=== PATIENT | male | born 1980 | race Caucasian/White ===

== ENCOUNTER 2023-10-07 07:51 | Emergency (ER) | payer OTHER ==
[~2023-10-07] VITALS: Ht 157.5 cm; Wt 64.2 kg
[2023-10-07 07:54] VITALS: BP 128/99; PULSE 80; RESP 18; TEMP 97.7; O2SAT 100
[2023-10-07 08:09] VITALS: O2SAT 100
[2023-10-07 08:14] VITALS: BP 125/83; TEMP 97.7
[2023-10-07 08:17] LABS: BASOPHILS % (AUTO) 0.1 % (0.0-2.0); EOSINOPHILS # (AUTO) 0.4 K/uL (0-0.4); EOSINOPHILS % (AUTO) 4.7 % (0.0-4.0); HEMATOCRIT 45.2 % (36-52); HEMOGLOBIN 15.7 g/dL (12.0-18.0); LYMPHOCYTES # (AUTO) 1.2 K/uL (2.0-11.5); LYMPHOCYTES % (AUTO) 14.2 % (20.5-51.1); MEAN CORPUSCULAR HEMOGLOBIN 31 pg (27-31); MEAN CORPUSCULAR HGB CONC 35 g/dL (33-37); MEAN CORPUSCULAR VOLUME 89.1 fL (80-94); MONOCYTES # (AUTO) 1.2 K/uL (0.8-1.0); MONOCYTES % (AUTO) 14.1 % (1.7-9.3); NEUTROPHILS # (AUTO) 5.8 K/uL (1.8-7.7); NEUTROPHILS % (AUTO) 66.9 % (42.2-75.2); PLATELET COUNT (AUTO) 240 K/uL (140-450); RED BLOOD CELL COUNT(AUTO) 5.08 MIL/uL (4.20-6.10); RED CELL DISTRIBUTION WIDTH 13.3 % (11.6-13.7); WHITE BLOOD COUNT (AUTO) 8.6 K/uL (4.8-10.8)
[2023-10-07 08:20] VITALS: PULSE 78; RESP 36; O2SAT 100; O2SAT 99
[2023-10-07] MEDS: ALBUTEROL SULFATE/IPRATROPIU 3 ML SOL IH ONE (08:20)
[2023-10-07 08:26] LABS: ANION GAP 10.2 (8-16); CALCIUM 8.1 mg/dL (8.5-10.1); CARBON DIOXIDE 29.7 mmol/L (21-32); POTASSIUM 3.9 mmol/L (3.5-5.1)
[2023-10-07 08:43] LABS: FLU A ANTIGEN negative (NEGATIVE); FLU B ANTIGEN NEGATIVE (NEGATIVE)
[2023-10-07] MEDS ORDERED: ALBU0.0912 IH (09:20)
[2023-10-07] MEDS ORDERED: AZIT250T4 PO (09:20)
[2023-10-07] MEDS ORDERED: BENZ200C4 PO (09:20)
[2023-10-07] MEDS ORDERED: FAMO-90 PO (09:20)
[2023-10-07] MEDS: FAMOTIDINE 20 MG TAB PO ONE (09:25)
[2023-10-07] MEDS: KETOROLAC 30 MG/ML VIAL IM ONE (09:35)
== END 2023-10-07 09:38 | disposition home or self-care (01) ==
LOC: MED 07:51
DX: J06.9 Acute upper respiratory infection, unspecified (principal); Z20.822 Contact with and (suspected) exposure to COVID-19; H66.91 Otitis media, unspecified, right ear; J45.909 Unspecified asthma, uncomplicated; Z88.0 Allergy status to penicillin; Z79.899 Other long term (current) drug therapy
CPT/HCPCS: 36415; 71045; 80048; 84484; 85025; 87426; 87804; 93005; 94640; 96372; 99285; J1885